=== PATIENT | male | born 1960 | race Caucasian/White ===

== ENCOUNTER 2022-06-29 23:08 | Outpatient (REF) | payer BC, SELFPAY ==
[2022-06-29 21:27] LABS: Abs Immature Grans 0.01 10^3/uL (0.0-0.06); Absolute Basophil Count 0.08 10^3/uL (0.0-0.2); Absolute Eosinophil Count 0.25 10^3/uL (0.0-0.7); Absolute Lymphocyte Count 1.28 10^3/uL (1.2-3.4); Absolute Monocyte Count 0.65 10^3/uL (0.1-0.8); Absolute Neutrophil Count 3.05 10^3/uL (1.2-6.7); Basophils % 1.5; Eosinophils % 4.7; HCT 41.5 % (40.0-50.0); HGB 14.5 g/dL (13.5-17.5); Immature Grans % 0.2; Lymphocytes % 24.1; MCH 31.4 pg (27.0-33.0); MCHC 34.9 % (32.0-36.0); MCV 90 fL (80-95); MPV 10.8 fL (8.0-11.0); Monocytes % 12.2; Neutrophils % 57.3; Platelet Count 213 10^3/uL (130-400); RBC 4.62 10^6/uL (4.36-5.78); RDW 12.9 % (11.8-14.1); RDW-SD 42.5 fL; WBC 5.32 10^3/uL (4.4-10.8)
[2022-06-29 21:38] LABS: ALT 36 U/L (16-63); AST 18 U/L (15-37); Albumin 3.9 g/dL (3.4-5.0); Alkaline Phosphatase 89 U/L (46-116); BUN 15 mg/dL (7-18); Bilirubin, Total 0.5 mg/dL (0.2-1.0); CREATININE 0.9 mg/dL (0.70-1.30); Calcium 8.8 mg/dL (8.5-10.1); Chloride 105 mmol/L (98-107); Glucose 91 mg/dL (74-106); Lipase 85 U/L (73-393); Potassium 4.2 mmol/L (3.5-5.1); Sodium 141 mmol/L (136-145); Total Protein 7.1 g/dL (6.4-8.2)
== END 2022-06-29 23:09 | disposition home or self-care (01) ==
LOC: LBN 23:08
PROVIDERS: Visit Provider Nurse Practitioner Family
DX: R10.9 Unspecified abdominal pain (principal)
CPT/HCPCS: 80053; 83690; 85025

== ENCOUNTER → 2022-07-18 07:41 | Outpatient (CLI) | payer BC, SELFPAY ==
--- NOTE | 2022-07-18 07:33 | DI.CT_ITS ---
Exam(s) CT ABDOMEN PELVIS W EXAM: CT ABDOMEN PELVIS W CLINICAL HISTORY: differential RUQ mass, abd pain, R10.9 TECHNIQUE: Imaging Protocol: Axial computed tomography images with coronal and sagittal reformatted images were created and reviewed CONTRAST MATERIAL: Intravenous: Omnipaque 350 Contrast volume:100 mL Oral: Yes COMPARISON: US US ABDOMEN from 07/13/2022 FINDINGS: ABDOMEN: Lung Bases: Normal where visualized. Liver: Normal density. No measurable mass. Portal, Superior Mesenteric, and Splenic Veins: Unremarkable. Gallbladder and Biliary Tract: No radiodense calculus or dilation. Pancreas: Normal density, no abnormal calcifications or inflammatory process. Spleen: Normal. Adrenals: No masses seen. Kidneys: Normal size, contour and axis. No radiodense stones or obstructive uropathy. Simple right re nal cysts. No follow-up is recommended. Abdominal Aorta: Abdominal portion non-dilated. Atherosclerosis is present. Bowel: No obstruction or bowel wall thickening. Appendix is unremarkable. Peritoneal Cavity: No ascites, collection or mesenteric inflammatory response. No free air. Lymph Nodes: Within normal limits. Bones: Within normal limits for the patient's age. Soft Tissues: Note is made of a right hydrocele. PELVIS: Bladder: Symmetric distention, no gross wall thickening. Reproductive Organs: Unremarkable as visualized. Lymph Nodes: Within normal limits. Bones: Within normal limits for the patient's age. IMPRESSION: 1. No acute abdominal or pelvic process. No evidence of an abdominal mass to correspond to the ultra sound finding. 2. Right hydrocele. RADIATION DOSE DELIVERED: 1,046.12mGy.cm Total DLP DATA REPOSITORY: All CT scans at this facility are submitted to the National Radiology Data Registry (NRDR) Dose Index Registry (DIR) with the [employer] (ACR). RADIATION OPTIMIZATION: All CT scans at this facility use at least one of these dose optimization te chniques: automated exposure control; mA and/or kV adjustment per patient size (includes targeted exa ms where dose is matched to clinical indication); or iterative reconstruction.
[2022-07-18] MEDS: Barium Sulfate 2% W/V-Berry Smoothie 450 ML BTL PO ×2 (08:28→08:37)
[2022-07-18] MEDS: Omnipaque 350 MG/ML 100 ML BTL IV (10:36)
== END ==
PROVIDERS: Visit Provider Nurse Practitioner Family
DX: R10.9 Unspecified abdominal pain (principal); N43.3 Hydrocele, unspecified
CPT/HCPCS: 74177; J3490

== ENCOUNTER 2024-08-18 23:44 | Emergency (ER) | payer BC, SELFPAY ==
--- NOTE | 2024-08-18 23:15 | RT.EKG_ITS ---
APPROVED REPORT Exam: Resting ECG Reason for Exam: stroke alert Patient Location: E HR:69 bpm ECG Measurements Heart Rate 69 AXIS PA 166 P 55 QRSd 107 QRS -11 QT 414 T 138 QTc 444 Conclusion Sinus rhythm...normal P axis, V-rate 60- 99 LVH with secondary repolarization abnormality...multi-LVH criteria, abnrm ST-T Probable lateral infarct, age indeterminate...Q >35mS, T neg, V5-V6 I aVL Physician: no stemi, inverted t waves in V6
--- NOTE | 2024-08-18 23:30 | DI.CT_ITS ---
Exam(s) CT BRAIN NECK CTA EXAM: CT BRAIN NECK CTA CLINICAL HISTORY: Left sided deficits, eval for stroke. TECHNIQUE: Imaging Protocol: Axial CT angiography was performed with multi-slice acquisition and mu lti-planar and/or 3D reconstructions. CONTRAST MATERIAL: Intravenous: Omnipaque 350 Contrast volume:structured data in ml COMPARISON: No exams were available for comparison FINDINGS: CTA Neck W: Aortic arch anatomy: The aortic arch anatomy is conventional and there is no significant stenosis at the origin of the great vessels off of the aortic arch. No intimal flap evident. Anterior circulation: Right common carotid artery ascends with normal luminal diameter. There is focal area of tortuosity in the left common carotid artery in the supraclavicular region with mild-moderate focal stenosis at this level. No dissection. At the level the carotid bulbs and proximal internal carotid arteries there is minimal plaque without hemodynamically significant stenosis evident. The internal carotid arteries are also patent in the upper neck and skull base. Posterior circulation: Both vertebral arteries originate in conventional fashion off of the subclavian arteries and there is no obvious stenosis at the origin of the vertebral arteries. Both vertebral arteries exhibit normal luminal diameters within the foramen transversarium. No significant stenosis nor intraluminal thrombus nor dissection of the vertebral arteries. Both vertebral arteries contribute to the formation of the basilar artery at the skull base. CTA Brain W: Anterior circulation: Both internal carotid arteries are patent in the skull base-carotid canals as well as within the cave rnous sinuses. The supraclinoid aspects of the ICAs are patent. Both A1 segments are patent as are the anterior cer ebral arteries and there is no evidence of aneurysm at the level of the anterior communicating artery . Left middle cerebral artery is patent. There appears to be focal occlusion of the right middle cereb ral artery at the M2 segment level. Posterior circulation: The basilar artery ascends in the midline. Distally it gives off patent bilateral superior cerebella r arteries. Above this level the basilar artery terminates as patent bilateral posterior cerebral arteries. There is no evidence of aneurysm at the tip of the basilar artery nor elsewhere in the pmhbcl-bp-Nxny is. CT BRAIN: There is no evidence of intracranial hemorrhage, mass effect, or shift of midline structures. There are no extra-axial fluid collections. Ventricles are not enlarged or shifted. There are no ring enh ancing lesions in the brain and no abnormal meningeal enhancement. IMPRESSION: 1. 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 Left middle cerebral ar katey is patent. Other intracranial arteries are patent there are no aneurysms. Also no evidence of vascular malformations nor ring-enhancing lesions in the brain. No evidence of intracranial hemorrha ge. No obvious territorial infarct evident at this time on this CT scan. Recommend follow-up MRI wi th diffusion imaging. 2. Patent vertebral arteries in the neck. Both vertebral arteries are nicely patent and exhibit equ al luminal diameters. Both contribute to the formation of the basilar artery at the skull base. 3. There is a focal tortuosity in the left common iliac artery a few cm distal to its origin with mi ld stenosis at this level. There is no stenosis at the carotid bifurcation and proximal internal car otid arteries on either side First read by [facility]. RADIATION DOSE DELIVERED: 2,133.69mGy.cm Total DLP DATA REPOSITORY: All CT scans at this facility are submitted to the National Radiology Data Registry (NRDR) Dose Index Registry (DIR) with the [employer] (ACR). RADIATION OPTIMIZATION: All CT scans at this facility use at least one of these dose optimization te chniques: automated exposure control; mA and/or kV adjustment per patient size (includes targeted exa ms where dose is matched to clinical indication); or iterative reconstruction.
[2024-08-18 23:38] VITALS: BP 120/70; PULSE 69; RESP 18; O2SAT 97
[2024-08-18] MEDS: Omnipaque 350 MG/ML 100 ML BTL IJ (23:42)
[2024-08-18 23:50] VITALS: RESP 18
[2024-08-18] MEDS: Normal Saline - Diluent 50 ML VIAL IJ (23:54)
[2024-08-18 23:59] VITALS: O2SAT 96
[2024-08-19] VITALS (37 sets, daily range): BP systolic 113–151; BP diastolic 67–90; PULSE 56–73; RESP 12–28; TEMP 36.7; O2SAT 94–100
[2024-08-19 00:05] LABS: BE (Venous) 1 mmol/L (-2-3); HCO3 (Venous) 26 mmol/L (23-28); O2 Sat (Venous) 56 %; TCO2 (Venous) 24 mmol/L (24-29); pCO2 (Venous) 44 mmHg (41-51); pH (Venous) 7.38 (7.31-7.41); pO2 (Venous) 31 mmHg
[2024-08-19 00:11] LABS: Abs Immature Grans 0.01 10^3/uL (0.0-0.06); Absolute Basophil Count 0.07 10^3/uL (0.0-0.2); Absolute Eosinophil Count 0.24 10^3/uL (0.0-0.7); Absolute Lymphocyte Count 0.93 10^3/uL (1.2-3.4); Absolute Monocyte Count 0.72 10^3/uL (0.1-0.8); Basophils % 1.2 %; Eosinophils % 4.2 %; HGB 13.6 g/dL (13.5-17.5); Immature Grans % 0.2 %; Lymphocytes % 16.4 %; MCH 31.3 pg (27.0-33.0); MCV 92 fL (80-95); MPV 9.7 fL (8.0-11.0); Monocytes % 12.7 %; Neutrophils % 65.3 %; Platelet Count 229 10^3/uL (130-400); RBC 4.35 10^6/uL (4.36-5.78); RDW 12.9 % (11.8-14.1); WBC 5.67 10^3/uL (4.4-10.8)
--- NOTE | 2024-08-19 00:11 | NUR.NOTE ---
Provide currently speaking to pt Alyson
--- NOTE | 2024-08-19 00:20 | ED.GENADUL_ITS ---
Discharge Plan Disposition Patient Disposition: Transfer-Acute Inpatient Care Specific Acute Inpt Facility: [facility] Condition: Critical Discharge Details Clinical Impression: Stroke Primary Care Provider: None,None ED Provider: Dino Trevino Home Meds and New Rx's Prescriptions: No Action atorvastatin 80 mg tablet 80 mg PO DAILY Brilinta 90 mg tablet 90 mg PO BID nitroglycerin 0.3 mg tablet, sublingual 0.3 mg sublingual Q5M PRN Rx Instructions: do not exceed 3 doses per episode metoprolol succinate 25 mg tablet extended release 24 hr 25 mg PO DAILY Praluent Pen 150 mg/mL pen injector 75 mg subcut Q14D Discharge Data Discharge Date/Time-TO BE ENTERED AT DEPARTURE: 08/19/24 03:32 HPI General Date/Time Provider Initiated Documentation: 08/18/24 23:46 . HPI Narrative: 64-year-old male with a past medical history of high cholesterol, hypertension, 2 myocardial infarctions, the most recent being in 2019 with 7 stents total, presents today for evaluation of stroke. At 9:45 PM states that he became unstable, began having some difficulty speaking and difficulty ambulating. EMS was contacted, and they live quite far out. It was an extended amount of time till they could be evaluated by EMS and then there was a prolonged time to drive him back. Patient has arrived at 11:45 PM. Patient denies any headache chest pain or shortness of breath. He admits to feeling off, slightly weak on the left-hand side. EMS reports normal blood glucose. Patient denies history of stroke. Patient's remains at home. No other complaints at this time. No other modifying factors. Related Data Home Medications ?Medication ?Instructions ?Recorded ?Confirmed atorvastatin 80 mg tablet 80 mg PO DAILY 06/29/22 08/18/24 metoprolol succinate 25 mg 25 mg PO DAILY 06/29/22 08/18/24 tablet,extended release 24 hr nitroglycerin 0.3 mg sublingual 0.3 mg sublingual Q5M PRN 06/29/22 08/18/24 tablet ticagrelor 90 mg tablet (Brilinta) 90 mg PO BID 06/29/22 08/18/24 alirocumab 150 mg/mL subcutaneous 75 mg subcut Q14D 08/19/24 08/19/24 pen injector (Praluent Pen) Allergies Allergy/AdvReac Type Severity Reaction Status Date / Time No Known Allergies Allergy Verified 08/18/24 23:47 General Stated Complaint: CVA/TIA CURTIS: 2 Review of Systems All systems reviewed & are unremarkable except as noted in HPI and below Exam Narrative Exam Narrative: 1.Const: Well-nourished, Well-developed, appearing stated age 2.Eyes: PERRL, no conjunctival injection, and symmetrical lids. 3.ENT: Atraumatic external nose and ears. Moist MM. Neck: Symmetric, trachea midline, No thyromegaly. 4.CVS: +S1/S2, No murmurs or gallops. Peripheral pulses 2+ and equal in all extremities. Brisk capillary refill in all extremities. 5.RESP: Unlabored respiratory effort. Clear to auscultation bilaterally. No wheezes rales or rhonchi 6.GI: Soft, Nontender/Nondistended, No hepatosplenomegaly. No guarding or rebound. 7.MSK: Normocephalic/Atraumatic, Extremities w/o deformity or ttp No cyanosis or clubbing. 8.Skin: Warm, Dry. No rashes or lesions. 9.Neuro: Patient demonstrates very mild left-sided facial droop, no forehead i nvolvement. Patient demonstrates rapid alternating movements bilaterally for the upper extremities but the left is significantly slower compared to the right. Hbbyey-cavd-fakjiz on the left is also slower and more difficult compared to the right. Patient is able to perform qwjm-le-fwuz bilaterally without deficit. He walks with a slightly slow gait. Patient is otherwise keenly responsive and answers both questions correctly. Is able to follow commands. Extraocular movements are normal, patient appears to have bilateral left-sided hemianopia patient demonstrates normal strength for all extremities however subjectively the left upper extremity appears to be slightly weaker compared to the right. Patient also has mild to moderate aphasia, mild to moderate dysarthria. He also seems to demonstrate some inattention on the left side of his body. NIH stroke scale is 7. 10.Psych: (AAO) x3. Appropriate mood and affect Course Vital Signs Vital signs: Vital Signs Pulse 69 08/18/24 23:38 Respiratory Rate 18 08/18/24 23:38 Blood Pressure 120/70 08/18/24 23:38 Pulse Oximetry 97 08/18/24 23:38 Temperature 36.7 C 08/19/24 00:13 Temperature Source Temporal Artery Scan 08/19/24 00:13 Pulse 73 08/19/24 00:06 Respiratory Rate 18 08/19/24 00:13 Respiratory Effort Normal 08/19/24 00:13 Respiratory Depth Normal 08/19/24 00:13 Respiratory Pattern Normal 08/19/24 00:13 Blood Pressure 138/76 08/19/24 00:06 Blood Pressure Mean 97 08/19/24 00:06 Pulse Oximetry 99 08/19/24 00:10 Comment vitals from EMS 08/18/24 23:38 Lab/Test Results Lab/Test Results: Laboratory Tests Range/Units 08/19/24 00:00 WBC (4.4-10.8) 10^3/uL 5.67 RBC (4.36-5.78) 10^6/uL 4.35 L Hgb (13.5-17.5) g/dL 13.6 Hct (40.0-50.0) % 40.0 MCV (80-95) fL 92 MCH (27.0-33.0) pg 31.3 MCHC (32.0-36.0) % 34.0 RDW (11.8-14.1) % 12.9 Plt Count (130-400) 10^3/uL 229 MPV (8.0-11.0) fL 9.7 Immature Gran % % 0.2 Neutrophils % % 65.3 Lymphocytes % % 16.4 Monocytes % % 12.7 Eosinophils % % 4.2 Basophils % % 1.2 Nucleated RBC % (0.0-0.3) % 0.0 Absolute Neutrophils (1.2-6.7) 10^3/uL 3.70 Absolute Lymphocytes (1.2-3.4) 10^3/uL 0.93 L Absolute Monocytes (0.1-0.8) 10^3/uL 0.72 Absolute Eosinophils (0.0-0.7) 10^3/uL 0.24 Absolute Basophils (0.0-0.2) 10^3/uL 0.07 VBG pH (7.31-7.41) 7.38 VBG pCO2 (41-51) mmHg 44 VBG pO2 mmHg 31 VBG HCO3 (23-28) mmol/L 26 VBG Total CO2 (24-29) mmol/L 24 VBG O2 Saturation % 56 VBG Base Excess (-2-3) mmol/L 1 Medical Decision Making 64-year-old male with a past medical history of high cholesterol, hypertension, 2 myocardial infarctions, the most recent being in 2019 with 7 stents total, presents today for evaluation of stroke. At 9:45 PM states that he became unstable, began having some difficulty speaking and difficulty ambulating. EMS was contacted, and they live quite far out. It was an extended amount of time till they could be evaluated by EMS and then there was a prolonged time to drive him back. Patient has arrived at 11:45 PM. Patient denies any headache chest pain or shortness of breath. He admits to feeling off, slightly weak on the left-hand side. EMS reports normal blood glucose. Patient denies history of stroke. Patient's remains at home. No other complaints at this time. No other modifying factors. Physical exam demonstrates very mild left-sided facial droop, no forehead involvement. Patient demonstrates rapid alternating movements bilaterally for the upper extremities but the left is significantly slower compared to the ri ght. Kwscaw-zfyx-wvqqtw on the left is also slower and more difficult compared to the right. Patient is able to perform ulhf-kj-yysr bilaterally without deficit. He walks with a slightly slow gait. Patient is otherwise keenly responsive and answers both questions correctly. Is able to follow commands. Extraocular movements are normal, patient appears to have bilateral left-sided hemianopia patient demonstrates normal strength for all extremities however subjectively the left upper extremity appears to be slightly weaker compared to the right. Patient also has mild to moderate aphasia, mild to moderate dysarthria. He also seems to demonstrate some inattention on the left side of his body. NIH stroke scale is 7. Patient's symptoms certainly appear concerning for potential stroke. High likelihood of ischemia, but hemorrhagic on the differential but less likely. Will get a CT dry to rule out a bleed, we will also get a CTA to evaluate for intervenable clot. If the patient does not have a bleed, I do feel a good candidate for TNK. He is on aspirin and Brilinta, and got 6 baby aspirin by his prior to arrival I did discuss risks and benefits of TNK with both the patient and the , and they would like to proceed understanding the risks and benefits. We will page telemetry neuro and plan for potential TNK administration. 11:50 PM [facility] ED lost charge card clerk as confirmed that teleneuro has been paged at [facility]. Patient appears to me to be a candidate for TNK and lysis. Will send for CT to rule out bleed. 12:21 AM [facility] has still not called back. Transfer center did call back at some additional questions. They stated that they needed these questions answered prior to teleneuro being consulted. I did reiterate my concern that this was a highly time sensitive etiology, and requested expedited callback from teleneuro. 1:04 AM Still pending read from [facility], I have concern for a potential density that I see in the right internal carotid at the [place] of [place]. We reach back out to [facility] at this time, they still have not called back for teleneuro. They state that they will repaged teleneuro. 1:30 AM On reassessment the patient continues to have all of his deficits and the elevated NIH stroke score. No improvement. We have called [facility] and teleneuro services multiple times and the teleneurologist has not returned our call, they have not contacted us again since their initial contact with us over an hour and a half ago when we initially paged them and they asked us to turn the monitor a different direction. I have asked [facility] now to reach out to their in-house neurologist for transfer. The 4.5-hour window of administration for TNK is rapidly diminishing. As is the potential benefit with the increase in risk. I had a jennifer discussion with the patient regarding his current clinical status, the medication, the risks and benefits, including the increased risk of bleeding because of his antiplatelet agents, And administering the medication prior to neurology evaluation. Through shared decision-making process, he agrees with the administration and my recommendations, and understanding that there is increased risk prior to neurology evaluation he would like to move forward in the current scenario with the medication for the potential benefit that it may add. We again reiterated the risks and benefits of this and he understands. TNK will be administered. 1:44 AM Telemetry neuro did call and ask us to recheck the camera to make sure it was working. 1:57 AM I spoke with [facility] neurology (NOT [facility]) and reviewed the case with them, Jennifer Burton and Graham. They agreed with the initial plan that we have chosen for administration of TNK. They would like the patient transferred to [facility]. They feel that there may be an intervenable clot that would benefit from catheter directed thrombolysis or clot retrieval. They are going to consult with . 2:05 AM [facility] has requested that the patient be transferred down emergently for potential thrombus retrieval. Currently checking for [facility] availability. 2:07 AM [facility] has contacted us, Dr. Ramos has called me and discussed the case with me. I informed her of the patient's clinical scenario, symptomatology, and the rapidly diminishing TNK window that was present. I discussed with her the risks and benefits that we weighed, and then the shared decision making to move forward with TNK, as well as [facility] neurology's recommendations thoughts opinions and request for transfer after their review of the case. I discussed with her my concern for the notable delay in callback, and she states that she will reach out to the staff to see what caused that problem. She will go ahead and see and evaluate the patient still at this time. 2:30 AM [facility] is unavailable for flying. Patient will be transferred via [facility] unit. Telemetry neuro physician does not have any additional recommendations at this time. 3 AM [facility] has arrived, patient is being transferred. Patient's neurologic status remained stable without significant improvement. No worsening. No headache. No evidence of bleeding. I have extensively reviewed the treatment plan with the patient. I have addressed all patient concerns at this time. I have also discussed the plan with the admitting physician and they agree with the current assessment and plan and have agreed to assume responsibility for the patient. All parties demonstrate verbal understanding and agreement with our assessment and plan at this time. The documentation in this chart was dictated using [employer] dictation software. Please excuse any dictation errors. At time of transfer the patient was reassessed and continued to demonstrate No signs of acute respiratory distress requiring intubation, hemodynamic instability requiring pressor support, or rapidly declining mental status. FINDINGS: ANTERIOR CIRCULATION: Right internal carotid artery: Intracranial segment is patent with no significant stenosis or occlusion. No aneurysm. Right middle cerebral artery: M2 segment occlusion (coronal series 21, images 28-29). No aneurysm. Right anterior cerebral artery: No occlusion or significant stenosis. No aneurysm Left internal carotid artery: Intracranial segment is patent with no significant stenosis. No aneurysm. Left middle cerebral artery: No occlusion or significant stenosis. No aneurysm. Left anterior cerebral artery: No occlusion or significant stenosis. No aneurysm. POSTERIOR CIRCULATION: Right vertebral artery: No occlusion or significant stenosis. No aneurysm. Left vertebral artery: No occlusion or significant stenosis. No aneurysm. Basilar artery: No occlusion or significant stenosis. No aneurysm. Right posterior cerebral artery: No occlusion or significant stenosis. No aneurysm. Left posterior cerebral artery: No occlusion or significant stenosis. No aneurysm. HEAD: Brain: Normal. No hemorrhage. Unremarkable white matter. No mass effect. Cerebral ventricles: Normal. No ventriculomegaly. Bones: Unremarkable. No acute fracture. Paranasal sinuses: An air-fluid level in the left sphenoid sinus. Mucoperiosteal thickening of multiple bilateral ethmoid air cells. Mastoid air cells: Visualized mastoids are normal. No mastoid effusion. Soft tissues: Unremarkable. IMPRESSION: 1. Right M2 segment occlusion. 2. Unremarkable CT head (pre contrast). 3. Paranasal sinus disease as above. FINDINGS: Right common carotid artery: No significant stenosis. No dissection or occlusion. Right internal carotid artery: No significant stenosis of the extracranial segment. No dissection or occlusion. Right external carotid artery: No occlusion or significant stenosis of the origin. Left common carotid artery: No significant stenosis. No dissection or occlusion. Left internal carotid artery: No significant stenosis of the extracranial segment. No dissection or occlusion. Left external carotid artery: No occlusion or significant stenosis of the origin. Right vertebral artery: No significant stenosis. No dissection or occlusion. Left vertebral artery: No significant stenosis. No dissection or occlusion. Soft tissues: No significant soft tissue swelling. Bones/joints: No acute fracture. IMPRESSION: 1. Normal right and left extracranial internal carotid arteries by NASCET criteria. 2. Widely patent bilateral vertebral arteries. THIS REPORT CONTAINS FINDINGS THAT MAY BE CRITICAL TO PATIENT CARE. The findings were verbally communicated via telephone conference with DINO TREVINO at 1:22 AM EDT on 08/19/2024. The findings were acknowledged and understood. REFERENCES: NASCET CRITERIA. The degree of stenosis in the cervical segment of the internal carotid artery is based on NASCET criteria. Normal is no stenosis. Mild is less than 50% stenosis. Moderate is 50- 69% stenosis. Severe is 70% to 99% stenosis. Total occlusion is no detectable patent lumen. Thank you for allowing us to participate in the care of your patient. Dictated and Authenticated by: Alexis Diego MD 08/19/2024 1:27 AM Eastern Time ([place] & [place]) Quality:SDOH Health Related Social Needs: No Data to Display Critical Care Time Critical Care Time Critical Care Time: Yes Total Critical Care Time: 110 Attestation: Upon my evaluation, this patient had a high probability of imminent or life- threatening deterioration, which required my direct attention, intervention, and personal management. I have personally provided 110 minutes of critical care time exclusive of time spent on separately billable procedures. Time includes review of laboratory data, radiology results, discussion with consultants, and monitoring for potential decompensation. Interventions were performed as documented. PFSH All Active Problems (Updated 08/19/24 @ 02:41 by Dino Trevino DO) Stroke (Chronic) Social History Smoking risk assessment performed?: No Housing: house
[2024-08-19 00:24] LABS: PTT Activated 25.7 sec (23.6-32.8); Prothrombin Time 10.4 sec (9.1-11.1)
[2024-08-19 00:34] LABS: ALT 19 U/L (16-63); AST 21 U/L (15-37); Albumin 3.3 g/dL (3.4-5.0); Alkaline Phosphatase 93 U/L (46-116); Anion Gap 5.9 mmol/L (3-11); BUN 28 mg/dL (7-18); Bilirubin, Total 0.37 mg/dL (0.2-1.0); CO2 27.1 mmol/L (21.0-32.0); CREATININE 0.9 mg/dL (0.70-1.30); Calcium 8.8 mg/dL (8.5-10.1); Chloride 107 mmol/L (98-107); Estimated GFR 95.97 (mL/min/1.73m2); Glucose 97 mg/dL (74-106); Potassium 3.9 mmol/L (3.5-5.1); Sodium 140 mmol/L (136-145); TSH (W/Ref FT4) 7.46 uIU/mL (0.36-3.74); Total Protein 6.6 g/dL (6.4-8.2); Troponin I 12 ng/L (<or=76)
[2024-08-19 00:35] LABS: ETHANOL BLOOD < 3.0 mg/dL (<10)
[2024-08-19 00:55] LABS: FREE T4 0.95 ng/dL (0.76-1.46)
--- NOTE | 2024-08-19 01:27 | DI.VRAD_ITS ---
PROCEDURE INFORMATION: Exam: CTA Head Without And With Contrast, Arteriography Exam date and time: 08/18/2024 11:40 PM Age: 64 years old Clinical indication: Stroke-like symptoms; Lt upper extremity weakness; Additional info: Left sided deficits, eval for stroke TECHNIQUE: Imaging protocol: Computed tomographic angiography of the head without and with contrast. Exam focused on the arteries. 3D rendering (Not supervised by radiologist): MIP and/or 3D reconstructed images were created by the technologist. Radiation optimization: All CT scans at this facility use at least one of these dose optimization techniques: automated exposure control; mA and/or kV adjustment per patient size (includes targeted exams where dose is matched to clinical indication); or iterative reconstruction. Contrast material: OMNIPAQUE 350; Contrast volume: 70 ml; Contrast route: INTRAVENOUS (IV); Other technique: STROKE PROTOCOL was implemented. COMPARISON: No relevant prior studies available. FINDINGS: ANTERIOR CIRCULATION: Right internal carotid artery: Intracranial segment is patent with no significant stenosis or occlusion. No aneurysm. Right middle cerebral artery: M2 segment occlusion (coronal series 21, images 28-29). No aneurysm. Right anterior cerebral artery: No occlusion or significant stenosis. No aneurysm. Left internal carotid artery: Intracranial segment is patent with no significant stenosis. No aneurysm. Left middle cerebral artery: No occlusion or significant stenosis. No aneurysm. Left anterior cerebral artery: No occlusion or significant stenosis. No aneurysm. POSTERIOR CIRCULATION: Right vertebral artery: No occlusion or significant stenosis. No aneurysm. Left vertebral artery: No occlusion or significant stenosis. No aneurysm. Basilar artery: No occlusion or significant stenosis. No aneurysm. Right posterior cerebral artery: No occlusion or significant stenosis. No aneurysm. Left posterior cerebral artery: No occlusion or significant stenosis. No aneurysm. HEAD: Brain: Normal. No hemorrhage. Unremarkable white matter. No mass effect. Cerebral ventricles: Normal. No ventriculomegaly. Bones: Unremarkable. No acute fracture. Paranasal sinuses: An air-fluid level in the left sphenoid sinus. Mucoperiosteal thickening of multiple bilateral ethmoid air cells. Mastoid air cells: Visualized mastoids are normal. No mastoid effusion. Soft tissues: Unremarkable. IMPRESSION: 1. Right M2 segment occlusion. 2. Unremarkable CT head (pre contrast). 3. Paranasal sinus disease as above. ASSESSMENT: ASPECTS ([place] Stroke Program Early CT Score) is 10. PROCEDURE INFORMATION: Exam: CTA Neck Without And With Contrast Exam date and time: 08/18/2024 11:40 PM Age: 64 years old Clinical indication: Stroke-like symptoms; Lt upper extremity weakness; Additional info: Left sided deficits, eval for stroke TECHNIQUE: Imaging protocol: Computed tomographic angiography of the neck without and with contrast. Exam focused on the cervical segments of the vasculature. 3D rendering (Not supervised by radiologist): MIP and/or 3D reconstructed images were created by the technologist. Radiation optimization: All CT scans at this facility use at least one of these dose optimization techniques: automated exposure control; mA and/or kV adjustment per patient size (includes targeted exams where dose is matched to clinical indication); or iterative reconstruction. Contrast material: OMNIPAQUE 350; Contrast volume: 70 ml; Contrast route: INTRAVENOUS (IV); COMPARISON: No relevant prior studies available. FINDINGS: Right common carotid artery: No significant stenosis. No dissection or occlusion. Right internal carotid artery: No significant stenosis of the extracranial segment. No dissection or occlusion. Right external carotid artery: No occlusion or significant stenosis of the origin. Left common carotid artery: No significant stenosis. No dissection or occlusion. Left internal carotid artery: No significant stenosis of the extracranial segment. No dissection or occlusion. Left external carotid artery: No occlusion or significant stenosis of the origin. Right vertebral artery: No significant stenosis. No dissection or occlusion. Left vertebral artery: No significant stenosis. No dissection or occlusion. Soft tissues: No significant soft tissue swelling. Bones/joints: No acute fracture. IMPRESSION: 1. Normal right and left extracranial internal carotid arteries by NASCET criteria. 2. Widely patent bilateral vertebral arteries. THIS REPORT CONTAINS FINDINGS THAT MAY BE CRITICAL TO PATIENT CARE. The findings were verbally communicated via telephone conference with KENY TREVINO at 1:22 AM EDT on 08/19/2024. The findings were acknowledged and understood. REFERENCES: NASCET CRITERIA. The degree of stenosis in the cervical segment of the internal carotid artery is based on NASCET criteria. Normal is no stenosis. Mild is less than 50% stenosis. Moderate is 50-69% stenosis. Severe is 70% to 99% stenosis. Total occlusion is no detectable patent lumen. Dictated and Authenticated by: Alexis Diego MD. Ordering:JOAO Sun MD
--- NOTE | 2024-08-19 01:27 | NUR.NOTE ---
[facility] called @ [phone] for pt. Facesheet was sent to [facility]
[2024-08-19] MEDS: Tenecteplase 50 MG KIT 23 MG IVP (01:28)
--- NOTE | 2024-08-19 01:29 | NUR.NOTE ---
Tele neuro called back to verify pt information and to make sure the screen is on to talk to pt.
[2024-08-19 01:45] LABS: Troponin I 13 ng/L (<or=76)
--- NOTE | 2024-08-19 01:45 | DI.RAD_ITS ---
Exam(s) XR PORTABLE CHEST AP EXAM: XR PORTABLE CHEST AP CLINICAL HISTORY: chest pain. TECHNIQUE: 2D digital imaging was performed. COMPARISON: No exams were available for comparison FINDINGS: Single AP portable view. There is mild cardiomegaly with left ventricular prominence and left coronary artery stent is noted. The mediastinum is not widened. There are mild increased markings in the lower right lung field but no confluent infiltrates nor pleu ral effusions. No evidence of pulmonary edema. IMPRESSION: As above. Recommend nonportable PA and lateral views when clinically possible or alternatively CT sc an. DATA REPOSITORY: RADIATION DOSE DELIVERED:
--- NOTE | 2024-08-19 01:45 | RT.EKG_ITS ---
APPROVED REPORT Exam: Resting ECG Reason for Exam: chest discomfort Patient Location: E HR:62 bpm ECG Measurements Heart Rate 62 AXIS KS 181 P 15 QRSd 109 QRS 3 QT 429 T 133 QTc 436 Conclusion Sinus rhythm...normal P axis, V-rate 60- 99 LVH with secondary repolarization abnormality...multi-LVH criteria, abnrm ST-T Physician: in annmarie t wave in V6
--- NOTE | 2024-08-19 02:55 | DI.VRAD_ITS ---
PROCEDURE INFORMATION: Exam: XR Chest Exam date and time: 08/19/2024 2:08 AM Age: 64 years old Clinical indication: Other: Chest pain TECHNIQUE: Imaging protocol: Radiologic exam of the chest. Views: 1 view. COMPARISON: CT BRAIN NECK CTA 06/20/2024 23:40 FINDINGS: Lungs: Subtle perihilar and right lower lobe interstitial opacities. Pleural spaces: No pleural effusion or pneumothorax. Heart/Mediastinum: Mild cardiomegaly. Bones/joints: No acute fracture is identified. IMPRESSION: Subtle perihilar and right lower lobe interstitial opacities. This may represent edema. Pneumonitis may present a similar picture. Dictated and Authenticated by: Alexis Diego MD. Ordering:JOAO Sun MD
== END 2024-08-19 03:32 | disposition short-term general hospital (02) ==
LOC: ER 08-19 03:33
PROVIDERS: Emergency Provider Student in an Organized Health Care Education/Training Program
DX: I63.9 Cerebral infarction, unspecified (principal)
CPT/HCPCS: 70496; 70498; 80053; 82805; 93005; 99291; 99292; 71045; 80320; 84439; 84443; 84484; 85025; 85610; 85730; 93010; J3101; J3490